=== PATIENT | female | born 1990 | race Caucasian/White ===

== ENCOUNTER → 2020-09-14 | Outpatient (CLI) | payer OTHER ==
--- NOTE | 2020-09-14 16:26 | XR ---
Sacrum and coccyx HISTORY: M53.3 3 views of the sacrum and coccyx Bone mineralization, joint spaces and alignment are maintained. IMPRESSION: Normal sacrum and coccyx
== END | disposition home or self-care (01) ==
LOC: RADXRMAIN 15:32
PROVIDERS: ATTEND Nurse Practitioner Women's Health
DX: M53.3 Sacrococcygeal disorders, not elsewhere classified (principal)
CPT/HCPCS: 72220